=== PATIENT | male | born 1940 | race Caucasian/White ===

== ENCOUNTER 2016-10-17 08:59 | Day surgery (SDC) | payer OTHER ==
[2016-10-10 15:04] VITALS: BMI 28.0
[2016-10-17] MEDS ORDERED: PROPOFOL 20 ML ONE (09:51)
[2016-10-17 11:21] VITALS: TEMP 98.7
[2016-10-17 11:22] VITALS: PULSE 56
[2016-10-17 11:36] VITALS: BP 119/64
--- NOTE | 2016-10-18 14:12 | PATH ---
Surgical Pathology Report Patient Name: NEIL CARMEN [facility]. Rec. #: [id number] /Age/Gender: 1940 (Age: 76) / M Account: [id number] Location: [facility]-ENDOSCOPY Taken: 10/17/2016 Received: 10/17/2016 Reported: 10/18/2016 Physicians: Juanita Mcdonough M.D. Specimen(s) Received A: BX SECOND PORTION DUODENUM B: BX ANTRUM C: BX GE JUNCTION Clinical History Abdominal pain, anemia Gastric erosions, ulcers Final Diagnosis A. SECOND PORTION DUODENUM, BIOPSY: DUODENAL MUCOSA WITH NO PATHOLOGIC FINDINGS. B. ANTRUM, BIOPSY: MILD CHRONIC GASTRITIS. IMMUNOSTAIN IS NEGATIVE FOR H. PYLORI ORGANISMS. C. GE JUNCTION, BIOPSY: GASTRIC CARDIA-TYPE MUCOSA WITH NO PATHOLOGIC FINDINGS. NO INTESTINAL METAPLASIA IS IDENTIFIED. Electronically Signed Marizol Contreras M.D. Gross Description A. Received in formalin, labeled "second portion of duodenum" is a willis, irregular portion of soft tissue measuring 0.3 cm. in greatest dimension. The specimen is submitted in toto in one cassette. B. Received in formalin, labeled "antrum" is a willis, irregular portion of soft tissue measuring 0.3 cm. in greatest dimension. The specimen is submitted in toto in one cassette. C. Received in formalin, labeled "GE junction" is a willis, irregular portion of soft tissue measuring 0.3 cm. in greatest dimension. The specimen is submitted in toto in one cassette. 10/17/2016 saudi10/17/2016
== END 2016-10-17 11:30 | disposition home or self-care (01) ==
LOC: FASU-ENDO 08:59
PROVIDERS: ATTEND Internal Medicine Gastroenterology
PROC: 0DB58ZX Excision of Esophagus, Via Natural or Artificial Opening Endoscopic, Diagnostic (ICD-10-PCS; 2016-10-17)
PROC: 0DB98ZX Excision of Duodenum, Via Natural or Artificial Opening Endoscopic, Diagnostic (ICD-10-PCS; principal; 2016-10-17 10:33)
PROC: 0DB68ZX Excision of Stomach, Via Natural or Artificial Opening Endoscopic, Diagnostic (ICD-10-PCS; 2016-10-17 10:33)
DX: D64.9 Anemia, unspecified (principal); K29.50 Unspecified chronic gastritis without bleeding
CPT/HCPCS: 88305-TC; 88342-TC